=== PATIENT | female | born 1975 | race Caucasian/White ===

== ENCOUNTER 2019-06-16 15:06 | Emergency (ER) | payer OTHER ==
[~2019-06-16] VITALS: Ht 167.6 cm; Wt 68.5 kg
[2019-06-16 15:10] VITALS: BP 124/88
[2019-06-16] MEDS ORDERED: HYDR25TA PO (15:27)
[2019-06-16] MEDS ORDERED: PRED50TA PO (15:27)
--- NOTE | 2019-06-16 15:27 | PHYS DOC ---
Past History Past Medical History: No Pertinent History Past Surgical History: Other Additional Past Surgical Histo: facial surgery, foot surgery Smoking: Non-smoker Alcohol Use: None Drug Use: None Adult General Chief Complaint Chief Complaint: SKIN PROBLEM HPI HPI Patient is a 43-year-old female presents complaining of bilateral forearm redness and rash. It itches. It has been present for the past 10 days, getting worse over time, worse with hot water in the shower. No drainage. Some improvement with [id number] topical steroid creams. No difficulty breathing. No nausea or vomiting. No fever. Symptoms are mild to moderate in intensity. Onset started after she was doing yard work. Patient was also squirted with lemon juice by her which she thought was the inciting event.[] Review of Systems Review of Systems Constitutional: Denies fever or chills [] Eyes: Denies change in visual acuity, redness, or eye pain [] HENT: Denies nasal congestion or sore throat [] Respiratory: Denies cough or shortness of breath [] Cardiovascular: No chest pain or palpitations[] GI: Denies abdominal pain, nausea, vomiting, bloody stools or diarrhea [] : Denies dysuria or hematuria [] Musculoskeletal: Denies back pain or joint pain [] Integument: See history of present illness[] Neurologic: Denies headache, focal weakness or sensory changes [] Endocrine: Denies polyuria or polydipsia [] All other systems were reviewed and found to be within normal limits, except as documented in this note. Allergies Allergies Allergies Coded Allergies Type Severity Reaction Last Updated Verified No Known Drug Allergies 06/16/19 No Physical Exam Physical Exam Constitutional: Well developed, well nourished, no acute distress, non-toxic appearance. [] HENT: Normocephalic, atraumatic, bilateral external ears normal, oropharynx moist, no oral exudates, nose normal. [] Eyes: PERRLA, EOMI, conjunctiva normal, no discharge. [] Neck: Normal range of motion, no tenderness, supple, no stridor. [] Cardiovascular:Heart rate regular rhythm, no murmur [] Lungs & Thorax: Bilateral breath sounds clear to auscultation [] Abdomen: Bowel sounds normal, soft, no tenderness, no masses, no pulsatile masses. [] Skin: Warm, dry, erythematous rash bilateral forearms, worse on the right. There are wheals as well as papules present. No skin sloughing. No petechiae. No axillary lymphadenopathy.[] Back: No tenderness, no CVA tenderness. [] Extremities: No tenderness, no cyanosis, no clubbing, ROM intact, no edema. [] Neurologic: Alert and oriented X 3, normal motor function, normal sensory function, no focal deficits noted. [] Psychologic: Affect normal, judgement normal, mood normal. [] EKG EKG [] Radiology/Procedures Radiology/Procedures [] Course & Med Decision Making Course & Med Decision Making Pertinent Labs and Imaging studies reviewed. (See chart for details) Medical decision making and ED course. Believe this to be a Rhus dermatitis. There is no evidence of staph scalded skin syndrome, toxic epidermal necrolysis, Kyle-Johann syndrome, nor systemic toxicity. Discussed findings and plan with patient who voiced understanding. All questions were answered. She was discharged in improved condition.[] Dragon Disclaimer Dragon Disclaimer This electronic medical record was generated, in whole or in part, using a voice recognition dictation system. Departure Departure: Impression: Primary Impression: Rhus dermatitis Disposition: HOME, SELF-CARE Condition: IMPROVED Referrals: [facility] (PCP) Patient Instructions: Poison Germaine Additional Instructions: Follow-up with your regular doctor in 2 days. Return to the ER if you develop a fever of more than 101�, difficulty breathing, there is purulent drainage, or any other concerns. Scripts Prednisone (PREDNISONE) 50 Mg Tablet 1 TAB PO DAILY for INFLAMMATION, #5 TAB Prov: BREA BARNES DO 06/16/19 Hydroxyzine Hcl (HYDROXYZINE HCL) 25 Mg Tablet 1 TAB PO TID for allergic reaction, #30 TAB Prov: BREA BARNES DO 06/16/19 BREA BARNES DO Jun 16, 2019 15:27
== END 2019-06-16 15:32 | disposition home or self-care (01) ==
LOC: ER 15:06
DX: L23.7 Allergic contact dermatitis due to plants, except food (principal)
CPT/HCPCS: 99283

== ENCOUNTER 2019-09-24 10:41 | Emergency (ER) | payer OTHER ==
[~2019-09-24] VITALS: Ht 167.6 cm; Wt 73.0 kg
[~2019-09-24 10:41] MED LIST: HYDR25TA PO; PRED50TA PO
--- NOTE | 2019-09-24 11:41 | PHYS DOC ---
Past History Past Medical History: No Pertinent History Past Surgical History: Other Additional Past Surgical Histo: facial surgery, foot surgery Smoking: Non-smoker Alcohol Use: None Drug Use: None Adult General Chief Complaint Chief Complaint: COUGH HPI HPI 44-year-old female presents with 5 day history of cough. It has been productive of a clear sputum. She comes in today because seemed to be getting worse not better. She is not a smoker. She has no known respiratory diseases. She has not had a fever or chills. Her daughter was sick week and a half ago, but is better. The patient was exposed to mold in her living situation, but they moved out 5 weeks ago. She was feeling better after moving out before this illness. She has no other complaints. Review of Systems Review of Systems Constitutional: Denies fever or chills [] Eyes: Denies change in visual acuity, redness, or eye pain [] HENT: Denies nasal congestion or sore throat [] Respiratory: Cough without shortness of breath [] Cardiovascular: No additional information not addressed in HPI [] GI: Denies abdominal pain, nausea, vomiting, bloody stools or diarrhea [] : Denies dysuria or hematuria [] Musculoskeletal: Denies back pain or joint pain [] Integument: Denies rash or skin lesions [] Neurologic: Denies headache, focal weakness or sensory changes [] Endocrine: Denies polyuria or polydipsia [] All other systems were reviewed and found to be within normal limits, except as documented in this note. Allergies Allergies Allergies Coded Allergies Type Severity Reaction Last Updated Verified No Known Drug Allergies 06/16/19 No Physical Exam Physical Exam Constitutional: Well developed, well nourished, no acute distress, non-toxic appearance. [] HENT: Normocephalic, atraumatic, bilateral external ears normal, oropharynx moist, no oral exudates, nose normal. [] Eyes: PERRLA, EOMI, conjunctiva normal, no discharge. [] Neck: Normal range of motion, no tenderness, supple, no stridor. [] Cardiovascular:Heart rate regular rhythm, no murmur [] Lungs & Thorax: Bilateral breath sounds clear to auscultation [] Abdomen: Bowel sounds normal, soft, no tenderness, no masses, no pulsatile masses. [] Skin: Warm, dry, no erythema, no rash. [] Back: No tenderness, no CVA tenderness. [] Extremities: No tenderness, no cyanosis, no clubbing, ROM intact, no edema. [] Neurologic: Alert and oriented X 3, normal motor function, normal sensory function, no focal deficits noted. [] Psychologic: Affect normal, judgement normal, mood normal. [] Current Patient Data Vital Signs Vital Signs Date Time Temp Pulse Resp B/P (MAP) Pulse Ox O2 Delivery O2 Flow Rate FiO2 09/24/19 10:50 97.7 77 16 96 Room Air EKG EKG [] Radiology/Procedures Radiology/Procedures [] Impressions: CHEST PA LATERAL Clinical indications: Cough. COMPARISON: None available. Findings: No acute lung infiltrate or pleural effusion or pulmonary edema or lung mass or pneumothorax is seen. The heart size, pulmonary vasculature, mediastinum and both anna are unremarkable. The osseous structures appear intact. Impression: No acute radiographic abnormality is seen. Electronically signed by: Isaías Franks MD (09/24/2019 11:41 AM) [facility] DICTATED AND SIGNED BY: ISAÍAS FRANKS MD DATE: 09/24/19 1141 CC: DAVID HERRERA DO; PCP,NO ~ Course & Med Decision Making Course & Med Decision Making Pertinent Labs and Imaging studies reviewed. (See chart for details) The patient's chest x-ray is unremarkable. This is likely viral URI with cough. I have advised supportive care. She is stable for discharge at this time. [] Dragon Disclaimer Dragon Disclaimer This electronic medical record was generated, in whole or in part, using a voice recognition dictation system. Departure Departure: Impression: Primary Impression: Viral URI with cough Disposition: 01 HOME, SELF-CARE Condition: STABLE Referrals: PCP,NO (PCP) Patient Instructions: Upper Respiratory Infection, Adult, Rhyp-ez-[id number] Scripts Albuterol Sulfate (PROAIR HFA INHALER) 8.5 Gm Hfa.aer.ad 2 PUFF IH PRN Q4-6HRS PRN for COUGH, #1 INHALER 0 Refills Generic substitution of albuterol sulfate MDI is approved. Please provide a spacer with this prescription. Prov: DAVID HERRERA DO 09/24/19 DAVID HERRERA DO Sep 24, 2019 11:41
--- NOTE | 2019-09-24 11:44 | RAD ---
CHEST PA LATERAL Clinical indications: Cough. COMPARISON: None available. Findings: No acute lung infiltrate or pleural effusion or pulmonary edema or lung mass or pneumothorax is seen. The heart size, pulmonary vasculature, mediastinum and both anna are unremarkable. The osseous structures appear intact. Impression: No acute radiographic abnormality is seen. Electronically signed by: Js Franks MD (09/24/2019 11:41 AM) [facility]
[2019-09-24] MEDS ORDERED: ALBU2.5V8 IH (11:54)
[2019-09-24 12:06] VITALS: BP 118/76
== END 2019-09-24 12:04 | disposition home or self-care (01) ==
LOC: ER 10:41
DX: J06.9 Acute upper respiratory infection, unspecified (principal); B97.89 Other viral agents as the cause of diseases classified elsewhere
CPT/HCPCS: 71046; 99284